=== PATIENT | male | born 1980 ===

== ENCOUNTER 2017-05-21 19:17 | Emergency (ER) | payer SELFPAY ==
[2017-05-21 19:32] VITALS: BP 133/86; PULSE 76; RESP 16; TEMP 97.9; O2SAT 98
--- NOTE | 2017-05-21 19:52 | ED PDOC ---
HPI: Skin/Bite Injury Time Seen by Provider: 05/21/17 19:37 Chief Complaint (Nursing): Abnormal Skin Integrity Chief Complaint (Provider): Rash to Right Foot History Per: Patient History/Exam Limitations: no limitations Onset/Duration Of Symptoms: Days (x 1 month) Current Symptoms Are (Timing): Still Present Additional Complaint(s): Nayan is a 36 y/o male with no past medical history who presents to the ED complaining of a rash to the right foot ongoing for 1 month. Patient states he was seen by his PMD 2 weeks ago and given oral antibiotics and topical antibiotics. Now rash has worsened and is more itchy. He denies fever or chills. PMD: Dr. Teresa Palacios Past Medical History Reviewed: Historical Data, Nursing Documentation, Vital Signs Vital Signs: Last Vital Signs Temp 97.9 F 05/21/17 19:31 Pulse 76 05/21/17 19:31 Resp 16 05/21/17 19:31 BP 133/86 05/21/17 19:31 Pulse Ox 98 05/21/17 19:59 - Medical History PMH: No Chronic Diseases - Family History Family History: States: No Known Family Hx - Living Arrangements Living Arrangements: With Family - Social History Current smoker - smoking cessation education provided: No Alcohol: Occasional Drugs: Denies - Home Medications Home Medications: Ambulatory Orders Medication Instructions Recorded Cephalexin [Keflex] 500 mg PO QID #28 cap 02/10/14 traMADol [Ultram] 50 mg PO QID PRN #20 tab 02/10/14 Fluconazole [Diflucan] 150 mg PO ONCE #1 tab 05/21/17 Ketoconazole 2% Cr [Nizoral] 60 gm TOP BID #1 tube 05/21/17 - Allergies Allergies/Adverse Reactions: Allergies Allergy/AdvReac Type Severity Reaction Status Date / Time No Known Allergies Allergy Verified 05/21/17 19:31 Review of Systems ROS Statement: Except As Marked, All Systems Reviewed And Found Negative Constitutional: Negative for: Fever, Chills Skin: Positive for: Rash (right foot, x 1 month) Physical Exam - Reviewed Nursing Documentation Reviewed: Yes Vital Signs Reviewed: Yes - Physical Exam Appears: Positive for: Well, Non-toxic, No Acute Distress Head Exam: Positive for: ATRAUMATIC, NORMAL INSPECTION, NORMOCEPHALIC Eye Exam: Positive for: Normal appearance Extremity: Positive for: Other (right foot: erythematous, scaly rash to dorsal aspect of right foot including all toes; no cellulitis; no active drainage, appearance consistent with fungal dermatitis) Neurologic/Psych: Positive for: Alert, Oriented, Gait (steady) - ECG O2 Sat by Pulse Oximetry: 98 (RA) Pulse Ox Interpretation: Normal Medical Decision Making Medical Decision Making: Time: 19:42 Initial Impression: Tinea Pedis Initial Plan: --Patient was instructed to stop taking current antibiotics. --Rx given for diflucan and topical antifungal cream. Patient was referred to podiatry clinic for follow up. Scribe Attestation: Documented by Byron Figueroa, acting as a scribe for Maria Luisa Trujillo PA-C. Provider Scribe Attestation: All medical record entries made by the Scribe were at my direction and personally dictated by me. I have reviewed the chart and agree that the record accurately reflects my personal performance of the history, physical exam, medical decision making, and the department course for this patient. I have also personally directed, reviewed, and agree with the discharge instructions and disposition. Disposition - Clinical Impression Clinical Impression: Tinea pedis - Patient ED Disposition Is Patient to be Admitted: No Counseled Patient/Family Regarding: Diagnosis, Need For Followup, Rx Given - Disposition Referrals: Podiatry Clinic [Outside] Disposition: Routine/Home Disposition Time: 19:52 Condition: STABLE Additional Instructions: Stop taking current medications. Take prescriptions as directed. Follow up in 3- 4 days with podiatry clinic. Prescriptions: Fluconazole [Diflucan] 150 mg PO ONCE #1 tab Ketoconazole 2% Cr [Nizoral] 60 gm TOP BID #1 tube Instructions: Tinea Pedis (ED) Forms: [employer] (Jamaican)
== END 2017-05-21 20:08 | disposition home or self-care (01) ==
LOC: H.ER 19:17
DX: B35.3 Tinea pedis (principal)

== ENCOUNTER 2017-05-26 19:31 | Emergency (ER) | payer SELFPAY ==
[2017-05-26 20:06] VITALS: BP 129/87; PULSE 65; RESP 20; TEMP 97.4; O2SAT 98
--- NOTE | 2017-05-26 20:33 | ED PDOC ---
HPI: Eye Injury/Pain Time Seen by Provider: 05/26/17 20:08 Chief Complaint (Nursing): Eye Problem Chief Complaint (Provider): irritation to both eyes History Per: Patient History/Exam Limitations: no limitations Onset/Duration Of Symptoms: Hrs (x 1) Current Symptoms Are (Timing): Still Present Injury To Eye?: Yes Wears Contact Lens?: No Additional Complaint(s): Nayan is a 36 year old male who presents to emergency department with irritation to both eyes s/p accidentally spraying Air Brake Antifreeze in eyes while working on his car. Patient immediately flushed eyes with water and then came to ED. Patient does not wear contact lenses. He is able to see but has light sensitivity. Patient states pain in right eye is worse than left eye. PMD: Teresa Palacios, Past Medical History Reviewed: Historical Data, Nursing Documentation, Vital Signs Vital Signs: Last Vital Signs Temp 97.4 F L 05/26/17 20:03 Pulse 65 05/26/17 20:03 Resp 20 05/26/17 20:03 BP 129/87 05/26/17 20:03 Pulse Ox 98 05/26/17 20:03 - Medical History PMH: No Chronic Diseases - Surgical History Other surgeries: Right Hand Surgery - Family History Family History: States: No Known Family Hx - Living Arrangements Living Arrangements: With Family - Social History Current smoker - smoking cessation education provided: No Alcohol: None Drugs: Denies - Home Medications Home Medications: Ambulatory Orders Medication Instructions Recorded Cephalexin [Keflex] 500 mg PO QID #28 cap 02/10/14 traMADol [Ultram] 50 mg PO QID PRN #20 tab 02/10/14 Fluconazole [Diflucan] 150 mg PO ONCE #1 tab 05/21/17 Ketoconazole 2% Cr [Nizoral] 60 gm TOP BID #1 tube 05/21/17 traMADol [Ultram] 50 mg PO TID PRN #15 tab 05/26/17 - Allergies Allergies/Adverse Reactions: Allergies Allergy/AdvReac Type Severity Reaction Status Date / Time No Known Allergies Allergy Verified 05/26/17 20:06 Review of Systems ROS Statement: Except As Marked, All Systems Reviewed And Found Negative Eyes: Positive for: Pain (b/l eye pain), Conjunctivae Inflammation, Redness. Negative for: Vision Change Neurological: Negative for: Headache, Dizziness Physical Exam - Reviewed Nursing Documentation Reviewed: Yes Vital Signs Reviewed: Yes - Physical Exam Appears: Positive for: In Acute Distress Head Exam: Positive for: ATRAUMATIC, NORMAL INSPECTION, NORMOCEPHALIC Eye Exam: Positive for: Other (moderate conjunctival injection noted to both eyes with bilateral corneal abrasions, no periorbital swelling or tenderness, excessive tearing noted bilaterally) Respiratory: Negative for: Respiratory Distress Neurologic/Psych: Positive for: Alert, Oriented (x 3) - ECG O2 Sat by Pulse Oximetry: 98 (RA) Pulse Ox Interpretation: Normal Medical Decision Making Medical Decision Making: Time: 20:38 Impression: 36 y/o with bilateral eye irriation Plan: - Selvin lens with saline applied to both eyes - Contact poison control - Contact Dermatology Nurse Practitioner mooner As per Herminio at poison control, supportive treatment only is indicated. Case was discussed with Dr. Knox, ophthalmology mooner. He state that he can see patient at 10 AM in his office tomorrow. He recommends patching the eye that is bothering the patient the most and sending patient home with tobramycin eyedrops as well as oral pain medication. Patch applied to right eye as patient states this eye feels worse than left. Patient was given tobramycin eye drops and rx tramadol for pain. Patient was instructed to go directly to Dr. Knox's office at 10:00 am tomorrow. Scribe Attestation: Documented by Chaim Augustin, acting as a scribe for Maria Luisa Trujillo PA-C Provider Scribe Attestation: All medical record entries made by the Scribe were at my direction and personally dictated by me. I have reviewed the chart and agree that the record accurately reflects my personal performance of the history, physical exam, medical decision making, and the department course for this patient. I have also personally directed, reviewed, and agree with the discharge instructions and disposition. Disposition - Clinical Impression Clinical Impression: Irritation of both eyes, Chemical conjunctivitis of both eyes - Patient ED Disposition Is Patient to be Admitted: No Counseled Patient/Family Regarding: Diagnosis, Need For Followup, Rx Given - Disposition Referrals: Froilan Knox MD [Staff Provider] - Disposition: Routine/Home Disposition Time: 22:14 Condition: STABLE Additional Instructions: Keep right eye covered. Go directly to ophthalmology office in the morning at 10 AM. Use drops as directed. Take prescription pain meds as directed as needed for pain. Prescriptions: traMADol [Ultram] 50 mg PO TID PRN #15 tab PRN Reason: Pain, Moderate (4-7) Instructions: [facility] (ED) Forms: [facility] (Brazilian)
[2017-05-26] MEDS ORDERED: Fluorescein 1 mg Ophthalmic Strip ONE (20:42)
[2017-05-26] MEDS: Tobramycin 0.3% OPHT SOLN OU STA (22:07)
== END 2017-05-26 22:42 | disposition home or self-care (01) ==
LOC: H.ER 19:31
DX: H10.213 Acute toxic conjunctivitis, bilateral (principal)